=== PATIENT | female | born 1960 | race Caucasian/White ===

== ENCOUNTER 2020-01-06 13:57 | Outpatient (CLI) | payer OTHER, SELFPAY ==
--- NOTE | 2020-01-06 14:01 | MM_ITS ---
WS: [id number] BILATERAL SCREENING DIGITAL MAMMOGRAM WITH CAD HISTORY: SCREENING COMPARISON: 12/21/2017 and 11/28/2016 Bilateral CC and MLO views submitted. Computer aided detection analyzed. Breast composition: There are scattered areas of fibroglandular density. No suspicious masses, microc alcifications or architectural distortion. Benign calcification medial RIGHT breast. MM/[id number] IMPRESSION: BI-RADS: 2-Benign FOLLOW UP: 1 Year Follow-up
== END 2020-01-06 13:58 | disposition home or self-care (01) ==
LOC: RADSHAW 14:00
PROVIDERS: PCP Family Medicine; Visit Provider Family Medicine
DX: Z12.31 Encounter for screening mammogram for malignant neoplasm of breast (principal)
CPT/HCPCS: 77067

== ENCOUNTER 2020-01-12 15:52 | Outpatient (CLI) | payer OTHER, SELFPAY ==
--- NOTE | 2020-01-12 16:15 | XR_ITS ---
WS: [id number] DEXA (DUAL ENERGY X-RAY ABSORPTIOMETRY) Bone mineral density was performed using a [employer] machine. HISTORY: postmenopause COMPARISON: 09/21/2014 Lumbar spine BMD (L1-L4): 1.211 g/cm2 T score: 0.3 Z score: 1.7 Total hip BMD: Left: 0.941 g/cm2. T score: -0.5 Z score: 0.5 Right: 0.933 g/cm2. T score: -0.6 Z score: 0.5 10 year probability of a major osteoporotic fracture is 7%. Compared to the prior study from 09/21/2014. Lumbar spine bone mineral density has increased by 0.2%. Bilateral hips bone mineral density has decreased by 0.4%. XR/XR DEXA axial skeleton* [id number] IMPRESSION: NORMAL BONE MINERAL DENSITY based upon the WHO classification for females. No s ignificant interval change.
== END 2020-01-12 15:53 | disposition home or self-care (01) ==
LOC: RADWPI 15:55
PROVIDERS: PCP Family Medicine; Visit Provider Nurse Practitioner Women's Health
DX: Z13.820 Encounter for screening for osteoporosis (principal); Z78.0 Asymptomatic menopausal state
CPT/HCPCS: 77080

== ENCOUNTER → 2020-04-26 10:10 | Outpatient (BNVA) | payer OTHER, SELFPAY | PROVIDERS: PCP Family Medicine; Visit Provider Nurse Practitioner Family | DX: Z01.812 Encounter for preprocedural laboratory examination (principal) | CPT/HCPCS: 87426 ==

== ENCOUNTER 2020-12-06 09:59 | Outpatient (CLI) | payer OTHER, SELFPAY ==
[2020-12-06 10:24] VITALS: BP 140/77; PULSE 55; RESP 16; TEMP 36.6; O2SAT 98; BMI 21.9
[2020-12-06 10:52] VITALS: BP 137/70; PULSE 56; O2SAT 99
[2020-12-06 11:52] VITALS: BP 125/73; PULSE 52; RESP 16; TEMP 36.8; O2SAT 99
== END 2020-12-06 10:00 | disposition home or self-care (01) ==
LOC: OPS 10:02
PROVIDERS: PCP Family Medicine; Visit Provider Nurse Practitioner Family
DX: U07.1 COVID-19 (principal)
CPT/HCPCS: 96365

== ENCOUNTER 2021-02-05 14:19 | Outpatient (CLI) | payer OTHER, SELFPAY ==
--- NOTE | 2021-02-05 14:24 | MM_ITS ---
WS: [id number] BILATERAL DIGITAL SCREENING MAMMOGRAPHY WITH CAD CLINICAL INFORMATION: SCREENING HISTORY: Screening mammogram. No current complaints. COMPARISON: January 06, 2020 TECHNIQUE: Bilateral CC and MLO views. FINDINGS: Scattered fibroglandular densities bilaterally. Stable punctate calcification right breast. No suspic ious focal mass, asymmetry, calcifications, or architectural distortion. No evidence of malignancy. MM/[place] [id number] IMPRESSION: BI-RADS: 2-Benign FOLLOW UP: 1 Year Follow-up Recommend return to annual screening mammography.
== END 2021-02-05 14:20 | disposition home or self-care (01) ==
PROVIDERS: PCP Family Medicine; Visit Provider Family Medicine
DX: Z12.31 Encounter for screening mammogram for malignant neoplasm of breast (principal)
CPT/HCPCS: 77067

== ENCOUNTER 2022-02-22 11:25 | Outpatient (CLI) | payer OTHER, SELFPAY ==
--- NOTE | 2022-02-22 11:30 | MM_ITS ---
WS: [id number] VIEWS: MLO and CC views both breasts. 3D digital tomosynthesis is also included in this exam. Comparison made with prior exam of 11/16/2014, 11/21/2015, 11/28/2016, 12/11/2017, 01/06/2020. 02/05/2021.. Findings: There was no sign of mass, architectural distortion or suspicious calcification in either breast. Sc attered fibroglandular densities MM/[place] [id number] Impression: BI-RADS: 2-Benign FOLLOW-UP: 1 Year Follow-up This mammogram was also analyzed by the Computer Aided Detection System [employer].
== END 2022-02-22 11:26 | disposition home or self-care (01) ==
LOC: RAD 11:25
PROVIDERS: PCP Family Medicine; Visit Provider Nurse Practitioner Women's Health
DX: Z12.31 Encounter for screening mammogram for malignant neoplasm of breast (principal)
CPT/HCPCS: 77063; 77067

== ENCOUNTER 2023-04-09 12:48 | Outpatient (CLI) | payer MEDICARE, OTHER, SELFPAY ==
--- NOTE | 2023-04-09 12:58 | MM_ITS ---
WS: [id number] Bilateral screening 3D tomosynthesis digital mammogram, 04/09/2023 Clinical Data: Z12.31 - Encounter for screening mammogram for malignant ... Comparison: 02/22/2022, 02/05/2021, 01/06/2020, 12/11/2017, 11/28/2016, 11/21/2015, 11/16/2014, 11/15/2013, , 11/11/2011, 10/23/2010, 10/12/2009, 10/11/2008, 09/21/2007, 09/11/2006. Findings: The breast parenchymal pattern shows fibroglandular tissue. No spiculated masses or clustered calcifi cations are seen. There are no secondary signs of carcinoma. There are lymph nodes in both axilla. Impression: 1. Negative bilateral mammogram unchanged. 2. Recommend annual screening mammograms. MM/[place] [id number] BIRADS: 1-Negative FOLLOW UP: 1 Year Follow-up The CAD supervisor [employer] check[employer] cash[employer] was used.
--- NOTE | 2023-04-09 13:30 | XR_ITS ---
WS: [email or web address] SCREENING DEXA SCAN [facility] CLINICAL INFORMATION: Z13.820 - Encounter for screening for osteoporosis COMPARISON: 2019 FINDINGS: The L1-L4 bone mineral density measures 1.273 g/cm2. This corresponds to a T score score of 0.8 and Z score of 2.4. Left femoral neck bone mineral density measures 1.017 g/cm2. This corresponds to a T score of 0.1 and Z score of 1.3. Right femoral neck bone mineral density measures 0.958 g/cm2. This corresponds to a T score -0.4of an d Z score of 0.8. Mean femoral neck bone mineral density measures 0.988 g/cm2. This corresponds to a T score of -0.2 an d Z score of 1.0. IMPRESSION: Normal bone mineralization. Patient's FRAX calculated 10 year probability for major osteoporotic fracture is 6.9% and osteoporoti c hip fracture is 0.4%. Bone mineral density lumbar spine has increased 5.1% Bone mineral density femoral necks increased 5.4%
== END 2023-04-09 12:49 | disposition home or self-care (01) ==
LOC: RAD 12:50
PROVIDERS: PCP Family Medicine; Visit Provider Nurse Practitioner Women's Health
DX: Z12.31 Encounter for screening mammogram for malignant neoplasm of breast; Z13.820 Encounter for screening for osteoporosis; Z78.0 Asymptomatic menopausal state
CPT/HCPCS: 77063; 77067; 77080

== ENCOUNTER → 2023-04-16 14:10 | Outpatient (BNVA) | payer MEDICARE, OTHER, SELFPAY | PROVIDERS: PCP Family Medicine; Visit Provider Dermatology | DX: L57.0 Actinic keratosis (principal); L70.0 Acne vulgaris; S90.112A Contusion of left great toe without damage to nail, initial encounter; X58.XXXA Exposure to other specified factors, initial encounter; L57.8 Other skin changes due to chronic exposure to nonionizing radiation; D23.71 Other benign neoplasm of skin of right lower limb, including hip; L82.1 Other seborrheic keratosis; L81.5 Leukoderma, not elsewhere classified; Z80.8 Family history of malignant neoplasm of other organs or systems; Z85.828 Personal history of other malignant neoplasm of skin | CPT/HCPCS: 17000; 99213 ==

== ENCOUNTER → 2023-10-28 12:57 | Outpatient (BNVA) | payer MEDICARE, OTHER, SELFPAY | PROVIDERS: PCP Family Medicine; Visit Provider Dermatology | DX: D48.5 Neoplasm of uncertain behavior of skin (principal); D23.71 Other benign neoplasm of skin of right lower limb, including hip; L81.5 Leukoderma, not elsewhere classified; Z80.8 Family history of malignant neoplasm of other organs or systems; Z85.828 Personal history of other malignant neoplasm of skin | CPT/HCPCS: 11102; 99213 ==

== ENCOUNTER 2024-01-15 13:50 | Outpatient (RCR) | payer MEDICARE, OTHER, SELFPAY | END 2024-02-05 23:59 | disposition home or self-care (01) | LOC: SPT 13:50 | PROVIDERS: PCP Family Medicine; Visit Provider Family Medicine | DX: M25.511 Pain in right shoulder (principal) | CPT/HCPCS: 97110; 97161 ==

== ENCOUNTER 2024-02-06 06:00 | Outpatient (RCR) | payer MEDICARE, OTHER, SELFPAY | END 2024-02-27 23:59 | disposition home or self-care (01) | LOC: SPT 06:00 | PROVIDERS: PCP Family Medicine; Visit Provider Family Medicine | DX: M25.511 Pain in right shoulder (principal) | CPT/HCPCS: 97110; 97164 ==

== ENCOUNTER 2024-04-14 09:48 | Outpatient (CLI) | payer MEDICARE, OTHER, SELFPAY ==
--- NOTE | 2024-04-14 09:53 | MM_ITS ---
WS: [id number] BILATERAL SCREENING DIGITAL TOMOSYNTHESIS MAMMOGRAM WITH CAD HISTORY: SCREENING COMPARISON: 04/09/2023, 02/22/2022 Bilateral CC and MLO views with tomosynthesis and synthetic mammography submitted. Computer aided det ection analyzed. Breast composition: There are scattered areas of fibroglandular density. No suspicious masses, microc alcifications or architectural distortion. Benign coarse calcification medial RIGHT breast. MM/MM scr BI tomosynthesis [id number] IMPRESSION: BI-RADS: 2 - Benign. FOLLOW UP: 1 Year Follow-up
== END 2024-04-14 09:49 | disposition home or self-care (01) ==
LOC: RAD 09:49
PROVIDERS: PCP Nurse Practitioner Family; Visit Provider Nurse Practitioner Family
DX: Z12.31 Encounter for screening mammogram for malignant neoplasm of breast (principal); R92.323 Mammographic fibroglandular density, bilateral breasts; R92.1 Mammographic calcification found on diagnostic imaging of breast
CPT/HCPCS: 77063; 77067

== ENCOUNTER → 2024-04-30 08:58 | Outpatient (BNVA) | payer MEDICARE, OTHER, SELFPAY | PROVIDERS: PCP Nurse Practitioner Family; Visit Provider Nurse Practitioner Family | DX: L81.8 Other specified disorders of pigmentation (principal); D23.71 Other benign neoplasm of skin of right lower limb, including hip; L81.5 Leukoderma, not elsewhere classified; Z85.828 Personal history of other malignant neoplasm of skin | CPT/HCPCS: 17000; 99214 ==